=== PATIENT | male | born 1985 | race Two or more races ===

== ENCOUNTER 2023-03-04 17:43 | Emergency (ER) | payer OTHER ==
[~2023-03-04] VITALS: Ht 175.3 cm; Wt 120.2 kg
[2023-03-04] MEDS ORDERED: GENTAMICIN SULF30 GM TOP (18:46)
[2023-03-04] MEDS ORDERED: ALBUTEROL2.5 MG/3 M IH (18:54)
[2023-03-04] MEDS ORDERED: BUDESONIDE0.5 MG/2 M IH (18:54)
== END 2023-03-04 19:06 | disposition home or self-care (01) ==
LOC: ER 17:43
DX: H10.9 Unspecified conjunctivitis (principal)

== ENCOUNTER 2024-12-22 10:45 | Outpatient (CLI) | payer OTHER ==
[~2024-12-22 10:45] MED LIST: ALBUTEROL2.5 MG/3 M IH; BUDESONIDE0.5 MG/2 M IH; GENTAMICIN SULF30 GM TOP
== END 2024-12-22 10:47 | disposition home or self-care (01) ==
LOC: NUCLEAR 10:45
DX: I10 Essential (primary) hypertension (principal); R00.0 Tachycardia, unspecified